=== PATIENT | male | born 1965 | race African-American/Black ===

== ENCOUNTER 2017-11-02 11:14 | Emergency (ER) | payer MEDICAID ==
[~2017-11-02] VITALS: Ht 172.7 cm; Wt 88.0 kg
[~2017-11-02 11:14] MED LIST: BACL20TA; OXYC-126
[2017-11-02 11:27] VITALS: BP 135/79
== END 2017-11-02 12:22 | disposition home or self-care (01) ==
LOC: ER 11:14
DX: L72.9 Follicular cyst of the skin and subcutaneous tissue, unspecified (principal)

== ENCOUNTER 2019-11-05 13:28 | Emergency (ER) | payer MEDICAID ==
[~2019-11-05] VITALS: Ht 172.7 cm; Wt 99.3 kg
[2019-11-05] MEDS ORDERED: FLUORESCEIN SOD 1 MG TEST STRIP OP ONE (14:15)
[2019-11-05 14:51] VITALS: BP 141/92
== END 2019-11-05 15:07 | disposition home or self-care (01) ==
LOC: ER 13:28
DX: H10.33 Unspecified acute conjunctivitis, bilateral (principal)

== ENCOUNTER 2020-08-18 14:26 | Emergency (ER) | payer MEDICAID ==
[~2020-08-18] VITALS: Ht 172.7 cm; Wt 104.3 kg
[2020-08-18 15:39] VITALS: BP 145/90
== END 2020-08-18 18:26 | disposition home or self-care (01) ==
LOC: ER 14:26
DX: N63.20 Unspecified lump in the left breast, unspecified quadrant (principal)
CPT/HCPCS: 76642

== ENCOUNTER 2023-04-26 00:59 | Emergency (ER) | payer MEDICAID ==
[~2023-04-26] VITALS: Ht 172.7 cm; Wt 125.2 kg
[2023-04-26 01:21] VITALS: BP 149/86; PULSE 86; RESP 16; O2SAT 99
[2023-04-26] MEDS ORDERED: KETOROLAC TROMETH 60MG/2ML VIAL IM ONE (04:30)
[2023-04-26] MEDS ORDERED: CYCL-837 PO (04:32)
== END 2023-04-26 05:40 | disposition home or self-care (01) ==
LOC: ER 00:59
DX: S16.1XXA Strain of muscle, fascia and tendon at neck level, initial encounter (principal); Z98.890 Other specified postprocedural states; Z79.899 Other long term (current) drug therapy; X58.XXXA Exposure to other specified factors, initial encounter; Y93.89 Activity, other specified; Y92.89 Other specified places as the place of occurrence of the external cause; Y99.8 Other external cause status
CPT/HCPCS: 96372; 99283; J1885

== ENCOUNTER 2023-04-27 20:33 | Emergency (ER) | payer MEDICAID ==
[~2023-04-27] VITALS: Ht 172.7 cm; Wt 118.2 kg
[~2023-04-27 20:33] MED LIST changes: +CYCL-837 PO
[2023-04-27 20:52] VITALS: BP 140/88; PULSE 92; RESP 15; O2SAT 95
== END 2023-04-27 23:57 | disposition left against medical advice (07) ==
LOC: ER 20:33
DX: M54.2 Cervicalgia (principal); Z53.21 Procedure and treatment not carried out due to patient leaving prior to being seen by health care provider

== ENCOUNTER 2023-09-05 05:32 | Emergency (ER) | payer MEDICAID ==
[~2023-09-05] VITALS: Ht 170.2 cm; Wt 121.1 kg
[2023-09-05 06:31] VITALS: BP 137/70; PULSE 75; RESP 20; TEMP 97.8; O2SAT 93
[2023-09-05 07:25] LABS: Basophils # (auto) 0.1 10 ^3/uL (0-0.2); Basophils % (auto) 0.7 % (0.0-2.0); Eosinophils # (auto) 0.3 10 ^3/uL (0-0.8); Eosinophils % (auto) 2.9 % (0.0-7.0); Hematocrit 48.2 % (41.0-53.0); Hemoglobin 15.8 g/dL (13.5-17.5); Lymphocytes # (auto) 2.1 10 ^3/uL (0.4-5.4); Lymphocytes % (auto) 22.2 % (10.0-50.0); Mean Corpuscular Hemoglobin 27.9 pg (28.0-32.0); Mean Corpuscular Hgb Conc. 32.8 g/dL (32.0-36.0); Mean Corpuscular Volume 85.2 fL (80.0-100.0); Monocytes # (auto) 0.4 10 ^3/uL (0-1.3); Monocytes % (auto) 4.8 % (0.0-12.0); Neutrophils # (auto) 6.5 10 ^3/uL (1.6-8.6); Neutrophils % (auto) 69.4 % (37.0-80.0); Nucleated Red Blood Cells % 0.1 %; Red Blood Cells 5.65 10^6/uL (4.5-5.90); White Blood Cell 9.3 10^3/uL (4.4-10.8)
[2023-09-05 07:37] LABS: Chloride 104 mmol/L (98-107); Potassium 4.1 mmol/L (3.5-5.1); Sodium 137 mmol/L (136-145)
[2023-09-05 07:38] LABS: Anion Gap 7 (5-15); Calcium 9.5 mg/dL (8.7-10.4); Carbon Dioxide 26 mmol/L (20-30)
[2023-09-05 07:43] LABS: BUN/Creatinine Ratio 6.7 (10.0-20.0); Blood Urea Nitrogen 7 mg/dL (9-23); Glucose 151 mg/dL (74-106); Uric Acid 9.4 mg/dL (3.7-9.2)
[2023-09-05] MEDS: KETOROLAC TROMETH 30 MG/ML 1ML VIAL IM ONE (08:11)
[2023-09-05] MEDS: DexAMETHasone 4 MG TAB PO ONE ×2 (08:12)
[2023-09-05] MEDS ORDERED: NAPR-957 PO (08:25)
[2023-09-05] MEDS ORDERED: METH4PAK PO (08:25)
== END 2023-09-05 08:30 | disposition home or self-care (01) ==
LOC: ER 05:32
DX: M54.9 Dorsalgia, unspecified (principal); M10.9 Gout, unspecified
CPT/HCPCS: 36415; 72100; 73130; 80048; 84550; 85025; 96372; 99284; J1885; J8540

== ENCOUNTER 2023-09-11 11:35 | Emergency (ER) | payer MEDICAID ==
[~2023-09-11] VITALS: Ht 172.7 cm; Wt 117.9 kg
[~2023-09-11 11:35] MED LIST changes: +METH4PAK PO; +NAPR-957 PO
[2023-09-11] MEDS ORDERED: MELO7.5T7 PO (13:26)
[2023-09-11 14:03] VITALS: TEMP 98.6
[2023-09-11] MEDS: MORPHINE SULFATE INJ 2 MG/ml SYRG IM ONE (14:13)
[2023-09-11 14:43] VITALS: BP 142/93; PULSE 79; RESP 18; O2SAT 96
== END 2023-09-11 15:00 | disposition home or self-care (01) ==
LOC: ER 11:35
DX: M54.16 Radiculopathy, lumbar region (principal); Z76.0 Encounter for issue of repeat prescription
CPT/HCPCS: 96372; 99283; J2270

== ENCOUNTER 2023-09-17 09:58 | Emergency (ER) | payer MEDICAID ==
[~2023-09-17] VITALS: Ht 172.7 cm; Wt 117.4 kg
[~2023-09-17 09:58] MED LIST changes: +MELO7.5T7 PO
[2023-09-17 10:13] VITALS: TEMP 99.1
[2023-09-17 10:15] VITALS: BP 151/94; PULSE 77; RESP 18; O2SAT 98
[2023-09-17] MEDS: GABAPENTIN 300 MG CAP PO ONE (11:39)
[2023-09-17] MEDS ORDERED: METR-344 PO (14:24)
[2023-09-17] MEDS ORDERED: CYCL-839 PO (14:24)
[2023-09-17] MEDS ORDERED: NABU-72 PO (14:24)
[2023-09-17] MEDS ORDERED: CIPR-173 PO (14:24)
[2023-09-17] MEDS ORDERED: GABA-1250 PO (14:39)
[2023-09-17] MEDS: cefTRIAXone SOD 500 MG VL IM ONE (14:43)
== END 2023-09-17 14:25 | disposition home or self-care (01) ==
LOC: ER 09:58
DX: K57.32 Diverticulitis of large intestine without perforation or abscess without bleeding (principal); K43.9 Ventral hernia without obstruction or gangrene; N40.0 Benign prostatic hyperplasia without lower urinary tract symptoms; M54.50 Low back pain, unspecified; Z79.899 Other long term (current) drug therapy
CPT/HCPCS: 74176; 96372; 99285; J0696